=== PATIENT | female | born 1950 | race American Indian/Alaskan Native ===

== ENCOUNTER 2017-12-16 21:35 | Observation (INO) | payer MEDICARE ==
[2017-12-16] MEDS ORDERED: ASPIRIN PO ONE (21:55)
[2017-12-16 22:11] LABS: Basophils # (Auto) 0.1 K/mm3 (0.0-0.1); Basophils % (Auto) 0.7 % (0.0-1.8); Eosinophils # (Auto) 0.8 K/mm3 (0.0-0.4); Eosinophils % (Auto) 7.9 % (0.0-4.3); Hematocrit 34.4 % (30.3-42.9); Hemoglobin 11.2 gm/dl (10.1-14.3); Lymphocytes # (Auto) 2.6 K/mm3 (1.2-5.4); Lymphocytes % (Auto) 27.2 % (13.4-35.0); Mean Corpuscular HGB Conc 33 % (30-34); Mean Corpuscular Volume 79 fl (79-97); Monocytes # (Auto) 0.7 K/mm3 (0.0-0.8); Monocytes % (Auto) 7.8 % (0.0-7.3); Platelet Count 279 K/mm3 (140-440); Red Blood Count 4.35 M/mm3 (3.65-5.03); Red Cell Distribution Width 13.9 % (13.2-15.2)
[2017-12-16 22:19] LABS: Mean Corpuscular Hemoglobin 26 pg (28-32)
[2017-12-16 22:27] LABS: BUN/Creatinine Ratio 19; Blood Urea Nitrogen 21 mg/dL (7-17); Calcium 9.2 mg/dL (8.4-10.2); Hemolysis Index 7
--- NOTE | 2017-12-17 00:16 | Emergency Department Report ---
ED General Adult HPI - General Chief complaint: Chest Pain Stated complaint: CHEST PAIN Time Seen by Provider: 12/16/17 23:25 Source: patient Mode of arrival: Ambulatory Limitations: No Limitations - History of Present Illness Initial comments: Patient complains of left-sided nonradiating chest pain that started this morning at 9 AM. Patient describes the pain as pressure-like and is worse with movement of her left arm. Patient denies any shortness of breath, abdominal pain, headache. No other associated symptoms -: Sudden Location: chest Radiation: non-radiation Severity scale (0 -10): 7 Quality: other (pressure) Consistency: constant Improves with: none Worsens with: movement Associated Symptoms: denies other symptoms Treatments Prior to Arrival: none - Related Data Home Medications Medication Instructions Recorded Confirmed Last Taken AtorvaSTATin [Lipitor] 10 mg PO DAILY 07/16/15 07/16/15 Unknown Azithromycin [Zithromax] 250 mg PO QDAY 07/16/15 07/16/15 Unknown Lisinopril [Zestril TAB] 10 mg PO QDAY 07/16/15 07/16/15 Unknown methylPREDNISolone [Medrol Dose 07/16/15 07/16/15 Unknown Andres] Previous Rx's Medication Instructions Recorded Last Taken Type Amoxicillin [Trimox CAP] 1,000 mg PO QDAY #20 capsule 07/05/16 Unknown Rx Allergies Allergy/AdvReac Type Severity Reaction Status Date / Time Sulfa (Sulfonamide Allergy Rash Verified 12/16/17 21:48 Antibiotics) ED Review of Systems ROS: Stated complaint: CHEST PAIN Other details as noted in HPI Constitutional: denies: chills, fever Eyes: denies: eye pain, eye discharge, vision change ENT: denies: ear pain, throat pain Respiratory: denies: cough, shortness of breath, wheezing Cardiovascular: chest pain. denies: palpitations Endocrine: no symptoms reported Gastrointestinal: denies: abdominal pain, nausea, diarrhea Genitourinary: denies: urgency, dysuria, discharge Musculoskeletal: denies: back pain, joint swelling, arthralgia Skin: denies: rash, lesions Neurological: denies: headache, weakness, paresthesias Psychiatric: denies: anxiety, depression Hematological/Lymphatic: denies: easy bleeding, easy bruising ED Past Medical Hx - Past Medical History Hx Hypertension: Yes Additional medical history: BRONCHITIS, HIGH CHOLESTEROL - Surgical History Hx Breast Surgery: Yes - Social History Smoking Status: Never Smoker Substance Use Type: None - Medications Home Medications: Home Medications Medication Instructions Recorded Confirmed Last Taken Type AtorvaSTATin [Lipitor] 10 mg PO DAILY 07/16/15 07/16/15 Unknown History Azithromycin [Zithromax] 250 mg PO QDAY 07/16/15 07/16/15 Unknown History Lisinopril [Zestril TAB] 10 mg PO QDAY 07/16/15 07/16/15 Unknown History methylPREDNISolone [Medrol Dose 07/16/15 07/16/15 Unknown History Nadres] Amoxicillin [Trimox CAP] 1,000 mg PO QDAY #20 capsule 07/05/16 Unknown Rx ED Physical Exam - General Limitations: No Limitations General appearance: alert, in no apparent distress - Head Head exam: Present: atraumatic, normocephalic - Eye Eye exam: Present: normal appearance - ENT ENT exam: Present: mucous membranes moist - Neck Neck exam: Present: normal inspection - Respiratory Respiratory exam: Present: normal lung sounds bilaterally. Absent: respiratory distress - Cardiovascular Cardiovascular Exam: Present: regular rate, normal rhythm. Absent: systolic murmur, diastolic murmur, rubs, gallop - GI/Abdominal GI/Abdominal exam: Present: soft, normal bowel sounds - Extremities Exam Extremities exam: Present: normal inspection - Back Exam Back exam: Present: normal inspection - Neurological Exam Neurological exam: Present: alert, oriented X3 - Psychiatric Psychiatric exam: Present: normal affect, normal mood - Skin Skin exam: Present: warm, dry, intact, normal color. Absent: rash ED Course Vital Signs 12/16/17 12/17/17 12/17/17 21:48 00:26 00:32 Temperature 98.1 F Pulse Rate 71 63 66 Blood Pressure 142/74 154/68 153/76 O2 Sat by Pulse 96 Oximetry ED Medical Decision Making - Lab Data Result diagrams: 12/16/17 21:58 12/16/17 21:58 - EKG Data -: EKG Interpreted by Me EKG shows normal: sinus rhythm (74) - EKG Data Interpretation: no acute changes, nonspecific ST-T wave christy, [facility] Critical care attestation.: If time is entered above; I have spent that time in minutes in the direct care of this critically ill patient, excluding procedure time. ED Disposition Clinical Impression: Chest pain Disposition: DC-09 OP ADMIT IP TO THIS HOSP Is pt being admited?: Yes Condition: Fair Instructions: Chest Pain (ED) Referrals: RAMAN DAMIAN MD [Primary Care Provider] - 3-5 Days
[2017-12-17] MEDS: NITROSTAT SL PRN ×2 (00:26→00:32)
[2017-12-17] MEDS ORDERED: ZOFRAN IV ONE (00:47)
[2017-12-17] MEDS ORDERED: MORPHINE ONE (01:02)
--- NOTE | 2017-12-17 01:11 | XRay Report ---
FINAL REPORT EXAM: XR CHEST 1V AP HISTORY: chest pain COMPARISON: None available. FINDINGS: Frontal view(s) of the chest obtained. Cardiac silhouette within normal limits. No gross consolidation or effusion. No pneumothorax. IMPRESSION: No grossly acute findings.
[2017-12-17] MEDS: MORPHINE IV ONE ×2 (01:20→03:19)
[2017-12-17] MEDS ORDERED: MORPHINE IV ONE (02:00)
[2017-12-17] MEDS ORDERED: TYLENOL PO PRN (02:13)
[2017-12-17] MEDS ORDERED: MORPHINE IV PRN (02:13)
[2017-12-17] MEDS ORDERED: DULCOLAX PR PRN (02:13)
[2017-12-17] MEDS ORDERED: MILK OF MAGNESIA PO PRN (02:13)
[2017-12-17] MEDS ORDERED: ZOFRAN IV PRN (02:13)
--- NOTE | 2017-12-17 02:15 | History and Physical Report ---
History of Present Illness Date of examination: 12/17/17 History of present illness: 67-year-old woman with a history of hypertension, hyperlipidemia, breast cancer because emergency room with complaint of chest pain located in the left substernal area. She is unable to describe the pain, it is constant, intensity 4/10, no radiation, she cannot identify exacerbating or relieving factors. She denies nausea vomiting, shortness by, diaphoresis or palpitation Review Of Systems: Constitutional: no weight loss Ears, eyes, nose, mouth and throat: no nasal congestion, no nasal discharge, no sinus pressure, blurry vision, diplopia Neck: No neck pain or rigidity. Cardiovascular: no orthopnea, palpitations Respiratory: No shortness of breath, cough Gastrointestinal: no abdominal pain, hematochezia Genitourinary : no dysuria, frequency , hematuria Musculoskeletal: no muscle ache Integumentary: no rash, no pruritis Neurological: no parathesias Endocrine: no cold or heat intolerance, no polyuria or polydipsia Hematologic/Lymphatic: no easy bruising, no easy bleeding, no gland swelling Allergic/Immunologic: no urticaria, no angioedema. PAST MEDICAL HISTORY: Hypertension, hyperlipidemia, osteoporosis, breast cancer PAST SURGICAL HISTORY: Bilateral mastectomy SOCIAL HISTORY: Denies alcohol, tobacco, drugs FAMILY HISTORY: Hypertension Medications and Allergies Allergies Allergy/AdvReac Type Severity Reaction Status Date / Time Sulfa (Sulfonamide Allergy Rash Verified 12/16/17 21:48 Antibiotics) Home Medications Medication Instructions Recorded Confirmed Last Taken Type AtorvaSTATin [Lipitor] 10 mg PO DAILY 07/16/15 12/17/17 12/16/17 History Lisinopril [Zestril TAB] 10 mg PO QDAY 07/16/15 12/17/17 12/16/17 History Meloxicam 15 mg PO DAILY 12/17/17 12/17/17 12/16/17 History Active Meds: Active Medications Nitroglycerin (Nitrostat) 0.4 mg SL .Q5MIN PRN PRN Reason: Chest Pain Last Admin: 12/17/17 00:32 Dose: 0.4 mg Exam - Physical Exam Narrative exam: Gen. appearance: Patient lying in bed, no apparent distress HEENT: Normocephalic, atraumatic, pupils equally round and reactive to light, extraocular movement intact, and no sclericterus,. No JVD or thyromegaly or nodule,neck supple, no carotid bruit ,mucous membranes moist, no exudate or erythema Heart: S1, S2, regular rate and rhythm Lungs: Clear to auscultation bilaterally, breathing comfortable Abdomen: Positive bowel sounds, nontender, nondistended, no organomegaly Extremity: No edema, cyanosis, clubbing Skin: No rash, nodules, warm, dry Neuro: Oriented 3, cranial nerves II-12 intact, speech is fluent, motor and sensory intact - Constitutional Vitals: Temp Pulse Resp BP Pulse Ox 98.1 F 66 153/76 96 12/16/17 21:48 12/17/17 00:32 12/17/17 00:32 12/16/17 21:48 Results - Labs CBC & Chem 7: 12/16/17 21:58 12/16/17 21:58 Labs: Abnormal lab results 12/16/17 12/16/17 Range/Units 21:58 21:58 MCH 26 L (28-32) pg Kane % (Auto) 7.8 H (0.0-7.3) % Eos % (Auto) 7.9 H (0.0-4.3) % Eos # 0.8 H (0.0-0.4) K/mm3 Carbon Dioxide 31 H (22-30) mmol/L BUN 21 H (7-17) mg/dL Glucose 153 H (65-100) mg/dL - Imaging and Cardiology EKG: image reviewed Chest x-ray: image reviewed Assessment and Plan Assessment Atypical chest pain Hypertension Hyperlipidemia Plan Admit to medicine Check cardiac enzymes, stress test Continue outpatient medications DVT prophylaxis
[2017-12-17] MEDS ORDERED: LEXISCAN IV ONE ×2 (09:08→09:12)
[2017-12-17] MEDS ORDERED: LOVENOX SUB-Q SCH (10:00)
[2017-12-17] MEDS ORDERED: ZESTRIL PO SCH (10:00)
--- NOTE | 2017-12-17 11:53 | Event Note ---
chest pain, stress test negative
--- NOTE | 2017-12-17 12:27 | Treadmill Report ---
INDICATION: Chest pain. ORDERING PHYSICIAN: Beck Mendez M.D. FINDINGS: There is no scintigraphic evidence of myocardial ischemia. The left ventricle is normal in size and systolic function. The left ventricular ejection fraction is measured at 77%. CONCLUSION: This is a normal perfusion scan. JOB# [id number]/[id number]
[2017-12-17 13:11] VITALS: BP 130/76
== END 2017-12-17 13:11 | disposition home or self-care (01) ==
LOC: ED 21:35 → 4A 12-17 02:13 → EEVIPCON 12-17 02:13
PROVIDERS: ADMIT Internal Medicine; ATTEND Internal Medicine
DX: R07.89 Other chest pain (principal); I10 Essential (primary) hypertension; E78.5 Hyperlipidemia, unspecified; E78.00 Pure hypercholesterolemia, unspecified; M81.0 Age-related osteoporosis without current pathological fracture; Z82.49 Family history of ischemic heart disease and other diseases of the circulatory system; Z85.3 Personal history of malignant neoplasm of breast
CPT/HCPCS: 36415; 71045; 78452; 80048; 84484; 85025; 93005; 93010; 93017; 96374; 96375; 96376; 99285; A9502; G0378; J2270; J2405; J2785

== ENCOUNTER 2018-01-04 16:16 | Emergency (ER) | payer OTHER, MEDICARE ==
[2018-01-04 16:26] VITALS: BP 157/70
[2018-01-04] MEDS ORDERED: ULTRAM PO ONE (20:59)
[2018-01-04] MEDS ORDERED: NORCO 7.5/325 PO ONE (21:01)
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
== END 2018-01-04 21:12 | disposition home or self-care (01) ==
LOC: ED 16:16
DX: M25.512 Pain in left shoulder (principal); M54.2 Cervicalgia; M25.562 Pain in left knee; I10 Essential (primary) hypertension; V89.2XXA Person injured in unspecified motor-vehicle accident, traffic, initial encounter; Y93.89 Activity, other specified; Y92.89 Other specified places as the place of occurrence of the external cause; Y99.8 Other external cause status
CPT/HCPCS: 99282

== ENCOUNTER 2018-11-10 23:35 | Emergency (ER) | payer OTHER, MEDICARE ==
[2018-11-11 00:54] VITALS: BP 149/69
[2018-11-11] MEDS ORDERED: MORPHINE IM ONE (01:42)
[2018-11-11] MEDS ORDERED: ZOFRAN ODT PO ONE (01:44)
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
[2018-11-11] MEDS ORDERED: MORPHINE ONE (02:54)
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
== END 2018-11-11 03:40 | disposition home or self-care (01) ==
LOC: ED 23:35
DX: S16.1XXA Strain of muscle, fascia and tendon at neck level, initial encounter (principal); S86.912A Strain of unspecified muscle(s) and tendon(s) at lower leg level, left leg, initial encounter; S86.911A Strain of unspecified muscle(s) and tendon(s) at lower leg level, right leg, initial encounter; R51 Headache; I10 Essential (primary) hypertension; E78.00 Pure hypercholesterolemia, unspecified; Z88.2 Allergy status to sulfonamides; Z88.6 Allergy status to analgesic agent; V49.49XA Driver injured in collision with other motor vehicles in traffic accident, initial encounter; Y93.89 Activity, other specified; Y92.410 Unspecified street and highway as the place of occurrence of the external cause; Y99.8 Other external cause status
CPT/HCPCS: 70450; 72125; 73562; 96372; 99284; J2270; Q0162